=== PATIENT | female | born 1980 | race Caucasian/White ===

== ENCOUNTER 2018-02-12 11:22 | Observation (INO) ==
[2018-02-12 12:41] LABS: BILIRUBIN,URINE NEGATIVE (NEG); CLARITY,URINE CLEAR (CLEAR); COLOR,URINE YELLOW (Y); GLUCOSE, URINE (UA) NEGATIVE (NEG); OCCULT BLOOD,URINE NEGATIVE (NEG); PH,URINE 6.5 (5.0-8.5); PROTEIN,URINE NEGATIVE (NEG); UROBILINOGEN,URINE 0.2 EU/dL (0.2)
[2018-02-12 12:56] LABS: URINE SAMPLE TYPE CLEAN CATCH URINE
[2018-02-12 12:57] LABS: SQUAMOUS EPITHELIAL CELL,UR FEW
[2018-02-12] MEDS ORDERED: NORMAL SALINE 10 ML SYRINGE FLUSH IVP PRN (14:40)
[2018-02-12] MEDS ORDERED: Lactated Ringers 1,000 ML PRIMARY IV ONE (14:40)
[2018-02-12] MEDS ORDERED: LIDOCAINE W/ SODIUM BICARB 0.5 ML SYR SUBD PRN (14:40)
[2018-02-12] MEDS ORDERED: ONDANSETRON 4 MG/2 ML VIAL IVP PRN (14:40)
[2018-02-12] MEDS ORDERED: NIFEdipine 10 MG CAPSULE PO SCH (14:45)
[2018-02-12] MEDS ORDERED: BETAMET ACET/BETAMET NA PH 6 MG/1 ML - 5 ML IM SCH (14:45)
--- NOTE | 2018-02-12 15:18 | OB.PROGRES ---
Interval History: The patient is a 37-year-old at 30-0/7 weeks today who is been having some lower abdominal cramping and pain and also some tightening of her abdomen. Positive movement, no leak of fluid no bleeding. The patient called and was asked to go to labor and delivery. Past medical history is significant for fibromyalgia and scoliosis. No history of depression. Also a history of bilateral hip bursitis. 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 No STI history positive history of herpes but no recent outbreaks for the past couple years. OB history significant for vaginal delivery x2. Largest baby was 7 lbs. 12 oz. Patient's first delivery was at 38 weeks and her second delivery was at 35-4/7 weeks. The patient does have a history of rapid labors. Her last labor she had PPROM and then delivered an hour and a half later. Patient did have a mild hemorrhage with her last delivery which improved with IV Pitocin and Cytotec rectally. Objective - Cervical Exam Cervical Exam: 1/75-80/-1. No blood on my glove with exam. Heart Rate Interpretation Category: Category I - Vital Signs Last Taken Vital Signs: Vital Signs - Last Taken Temperature 98.1 F 02/12/18 11:35 Pulse Rate 95 02/12/18 11:35 Respiratory Rate 18 02/12/18 11:35 Blood Pressure 128/67 02/12/18 11:35 Pulse Ox 100 02/12/18 11:35 - Additional Details Additional Details: Abdomen is soft and nontender without guarding or rebound. Urinalysis was negative fibronectin was positive Vaginosis panel was negative Assessment and Plan - Assessment / Plan Additional Assessment/Plan Details: Assessment: IUP 30-0/7 weeks with some lower abdominal pain and cramping. No specific contractions on monitor but nurse couldn't palpate one contraction. The the patient's fibronectin was positive. A negative fibronectin yields about a significant chance patient will not deliver in the next 2 weeks but a positive fibronectin does not mean the patient will have a delivery. Urinalysis was negative. The patient's cervix is effaced to 75-80% and her cervix is 1 cm. My exam was very gentle. The baby did palpate low in the pelvis with my exam. Plan: The patient will be admitted for observation status. IV will be started and IV bolus Procardia 10 mg by mouth every 6 hours after initial bolus of 10 mg daily 20 minutes 3 doses Betamethasone 12 mg IM now and then repeat in 24 hours. We discussed that this is for lung maturity but also to help prevent necrotizing enterocolitis and interventricular hemorrhage if there was a delivery. Patient expressed understanding. External monitor Ultrasound-patient had a growth ultrasound a couple weeks ago but I will get another one today to look at presentation but also to look at the NYLA as well as EFW.
[2018-02-12] MEDS: NIFEdipine 10 MG CAPSULE PO SCH ×4 (15:44→21:45)
[2018-02-12 15:55] LABS: BASOPHILS # (AUTO) 0.02 10*3/UL; BASOPHILS % (AUTO) 0.2 % (0-1); EOSINOPHILS # (AUTO) 0.15 10*3/UL; EOSINOPHILS % (AUTO) 1.1 % (0-8); Hematocrit [HCT] 39.7 % (37.0-47.0); Hemoglobin [HGB] 13.8 g/dL (12.0-16.0); LYMPHOCYTES # (AUTO) 2.45 10*3/uL; MEAN CORPUSCULAR HEMOGLOBIN 30.8 PG (27-31); MEAN CORPUSCULAR HGB CONC 34.8 g/dL (33-37); MEAN CORPUSCULAR VOLUME 88.6 FL (81-99); MEAN PLATELET VOLUME 9.2 FL (7.4-12.2); MONOCYTES # (AUTO) 0.58 10*3/UL (0.3-0.8); MONOCYTES % (AUTO) 4.4 % (5-15); NEUTROPHILS # (AUTO) 9.77 10*3/UL; NEUTROPHILS % (AUTO) 74.8 % (50-80); RED BLOOD COUNT 4.48 10^6/uL (4.20-5.40)
[2018-02-12 16:03] LABS: PLATELET MORPHOLOGY COMMENT NORMAL MORPHOLOGY (NORM); RBC MORPHOLOGY COMMENT NORMAL MORPHOLOGY (NORM); WBC MORPHOLOGY COMMENT NORMAL MORPHOLOGY (NORM)
[2018-02-12 16:29] LABS: BLOOD UREA NITROGEN 5 mg/dL (7-22); SERUM ALBUMIN 3.7 g/dL (3.5-4.8)
--- NOTE | 2018-02-12 17:45 | DI ---
US OB , Limited,02/12/2018 3:24 PM: Clinical History: labor and abdominal pain. Previous Exam: January 29, 2018 Findings: Multiple grayscale and color Doppler sonographic images of the pelvis demonstrate a single live intra uterine gestation in vertex presentation. Detected Doppler heart tones measure 147 beats per minute. A normal amniotic fluid level is noted (12.7 cm). Estimated gestational age was determined by a composite of biparietal diameter, head circumference, a bdominal circumference and femur length yielding an estimated gestational age by ultrasound of 30 wee ks one day. Estimated weight is 1390 g (20th percentile). Impression: Single live intrauterine gestation with size equal to dates. Normal amniotic fluid index
--- NOTE | 2018-02-12 20:54 | OB.PROGRES ---
Interval History: The patient states that she is comfortable. Still having some abdominal discomfort and tightening but perhaps not as much. Baby moving. No leak of fluid. No bleeding. Objective - Cervical Exam Cervical Exam: -80/-1 to -2. The baby's head is not quite as low in her pelvis as it was earlier. No blood on my glove with cervical exam [place]: No specific contractions picking up. Heart Rate Interpretation Category: Category I - Labs CBC and BMP: 02/12/18 15:40 02/12/18 15:40 - Vital Signs Last Taken Vital Signs: Vital Signs - Last Taken Temperature 97.9 F 02/12/18 17:00 Pulse Rate 83 02/12/18 17:00 Respiratory Rate 16 02/12/18 17:00 Blood Pressure 107/55 02/12/18 17:00 Pulse Ox 100 02/12/18 14:40 - Additional Details Additional Details: Abdomen is soft without guarding or rebound Assessment and Plan - Assessment / Plan Additional Assessment/Plan Details: Assessment: IUP 30 weeks with contractions or labor. The patient's cervix is unchanged from earlier but the baby's head is not as low in the patient's pelvis as it was previously. Plan: Patient will receive second dose of betamethasone tomorrow afternoon. Nifedipine 10 mg by mouth every 6 hours-patient states she does have a headache and this may be a result of the nifedipine. I will offer the patient some Tylenol. Continue bedrest with bathroom privileges Group B strep is pending Continue to observe closely.
[2018-02-12] MEDS: ACETAMINOPHEN 500 MG TABLET PO PRN (21:45)
[2018-02-12] MEDS: Lactated Ringers 1,000 ML PRIMARY IV SCH (22:23)
[2018-02-13] MEDS: NIFEdipine 10 MG CAPSULE PO SCH ×4 (02:47→20:57)
--- NOTE | 2018-02-13 08:33 | OB.PROGRES ---
Interval History: The patient states that she still has occasional cramping but it is improved. She has a dull headache after taking the Tylenol last night. Objective - Cervical Exam Cervical Exam: Deferred currently - Labs CBC and BMP: 02/12/18 15:40 02/12/18 15:40 - Vital Signs Last Taken Vital Signs: Vital Signs - Last Taken Temperature 97.9 F 02/13/18 04:01 Pulse Rate 101 H 02/13/18 04:01 Respiratory Rate 20 02/13/18 04:01 Blood Pressure 118/70 02/13/18 04:01 Pulse Ox 100 02/13/18 04:01 - Additional Details Additional Details: Abdomen is soft without guarding or rebound Assessment and Plan - Assessment / Plan Additional Assessment/Plan Details: Assessment: IUP 30-1/7 weeks with contractions or labor. Cervix was dilated to 1 cm and effaced to 75-80%. Last night's exam showed the cervix to be essentially unchanged but the head was not as low in the pelvis. Patient is status post 1 dose of betamethasone yesterday afternoon at 1650 hrs. Vaginosis panel was negative fibronectin was positive Group B strep is pending This morning, the patient is doing fairly well. She still hasn't all headache which may be secondary to the Procardia or nifedipine which she is receiving 10 mg every 6 hours. Plan: Betamethasone this afternoon Continue bedrest and bathroom privileges SCDs I will check the patient's cervix midday Continue to follow closely I anticipate if the patient continues to do well without further cervical dilation, I could send the patient home tomorrow on decreased activity at home. The patient would not be working for the next 6 weeks. The patient will follow up with me weekly in the clinic. Strict precautions would be given. The patient and I discussed this and the patient expressed understanding.
[2018-02-13] MEDS: ACETAMINOPHEN 500 MG TABLET PO PRN (08:44)
[2018-02-13] MEDS: Prenatal Multivitamin Tab 1 TAB TAB PO SCH (09:46)
[2018-02-13] MEDS: Lactated Ringers 1,000 ML PRIMARY IV SCH ×2 (13:41→23:37)
--- NOTE | 2018-02-13 15:11 | OB.PROGRES ---
Interval History: The patient states that she is been doing well. Decreased discomfort. Objective - Cervical Exam Cervical Exam: /. The cervix was actually slightly less dilated than it was last evening. This is good. [place]: No contractions Heart Rate Interpretation Category: Category I - Labs CBC and BMP: 02/12/18 15:40 02/12/18 15:40 - Vital Signs Last Taken Vital Signs: Vital Signs - Last Taken Temperature 97.8 F 02/13/18 09:45 Pulse Rate 97 02/13/18 09:45 Respiratory Rate 18 02/13/18 09:45 Blood Pressure 126/57 02/13/18 09:45 Pulse Ox 100 02/13/18 09:45 - Additional Details Additional Details: Abdomen soft, without guarding or rebound Assessment and Plan - Assessment / Plan Additional Assessment/Plan Details: Assessment: IUP 30 and one sevenths weeks with contractions or labor. Cervix has not changed and exam had shown that the cervix is actually slightly less dilated than it was last night although still 1 cm. 75% effaced. The cervix palpated slightly more firm than it did last night. This is good. Plan: Betamethasone this afternoon. Continue care Possible discharge tomorrow with nifedipine and decreased activity at home.
[2018-02-13] MEDS ORDERED: BETAMET ACET/BETAMET NA PH 6 MG/1 ML - 5 ML IM SCH (16:45)
[2018-02-13] MEDS ORDERED: Zolpidem Tab 5 MG TAB PO PRN (20:16)
[2018-02-14] MEDS ORDERED: CALCIUM CARBONATE 500 MG (TUMS) CHEWABLE TABLET PO ONE (02:01)
[2018-02-14] MEDS: NIFEdipine 10 MG CAPSULE PO SCH ×2 (03:06→09:06)
[2018-02-14 04:14] VITALS: O2SAT 100
[2018-02-14 07:46] VITALS: RESP 18; TEMP 98.2
[2018-02-14] MEDS: Prenatal Multivitamin Tab 1 TAB TAB PO SCH (09:06)
[2018-02-14 09:50] VITALS: BP 112/63
--- NOTE | 2018-02-14 10:27 | OB.PROGRES ---
Interval History: The patient states that she feels well. No abdominal pain. She still has slight pressure but much improved since yesterday. And much improved from the day before. The patient would like to go home. Objective - Cervical Exam Cervical Exam: Deferred today [place]: Rare contraction, no specific irritability Heart Rate Interpretation Category: Category I - Labs CBC and BMP: 02/12/18 15:40 02/12/18 15:40 - Vital Signs Last Taken Vital Signs: Vital Signs - Last Taken Temperature 98.2 F 02/14/18 07:30 Pulse Rate 92 02/14/18 07:30 Respiratory Rate 18 02/14/18 07:30 Blood Pressure 112/63 02/14/18 09:30 Pulse Ox 100 02/14/18 07:30 - Additional Details Additional Details: Lungs clear to auscultation Heart regular rate and rhythm Abdomen is gravid, soft, nontender without guarding or rebound Extremity without Homans sign Assessment and Plan - Assessment / Plan Additional Assessment/Plan Details: Assessment: IUP 30-2/7 weeks with contractions with initial cervical change but none since. Patient taking nifedipine 10 mg every 6 hours and tolerating this well now. No headache. Patient is status post betamethasone 2 injections to complete 1 course. Plan: Discharge home today No work until 36 weeks gestation Procardia 10 mg by mouth every 6 hours The patient should also be taking her Valtrex to prophylactically prevent an HSV outbreak Patient has an appointment with me next week on 17 February at 11:00 in the morning The patient will then see me weekly Repeat ultrasound in 4 weeks for growth scan Labor precautions and kick count precautions discussed with patient.
--- NOTE | 2018-02-14 10:36 | DCSUMMARY ---
Hospitalization Summary Admit Date: 02/12/18 Discharge Date: 02/14/18 Primary Diagnosis:: IUP 30 weeks gestation with contractions Primary Surgery and Date: No surgery Hospital Course: The patient was admitted and given IV fluids. IM betamethasone was administered on and 02/13/2018. The patient was also placed on Procardia 10 mg every 6 hours after a loading dose of 10 mg by mouth every 20 minutes 3 doses. The patient's cervical exam yesterday afternoon actually shows some improvement. Her cervix was still 1 cm/75/-2 with the cervix did palpate slightly more closed yesterday afternoon. The patient has tolerated the nifedipine 10 mg every 6 hours after initially having a headache. The patient does not have a headache today. The patient will be discharged home on decreased activity at home and no work until 36 weeks gestation. The patient will follow-up with me next week and then weekly. A growth scan in 4 weeks will be completed. The patient will also take Valtrex to prophylactically prevent an HSV outbreak since she has a history. The patient will continue nifedipine 10 mg every 6 hours. Exam - Vitals Vital Signs: Vital Signs Temperature 98.2 F Temperature Source Oral Pulse Rate [Apical] 90 Pulse Rate [Pulse Oximeter] 92 Pulse Rate 90 Respiratory Rate 18 Blood Pressure [Right Arm] 112/63 Pulse Ox 100 Oxygen Flow Rate 98 Oxygen Delivery Method Room Air Height 6 ft Weight 211 lb 8 oz
== END 2018-02-14 11:47 | disposition home or self-care (01) ==
LOC: OBOP 11:22 → OBIP 11:22
PROVIDERS: ADMIT Obstetrics & Gynecology; ATTEND Obstetrics & Gynecology

== ENCOUNTER 2018-03-28 09:50 | Inpatient (IN) ==
--- NOTE | 2018-03-28 11:37 | OB.PROGRES ---
Interval History: The patient is a 36-year-old white female at 36-2/7 weeks who has been followed for contractions since 30 weeks and then her growth scans a been followed secondary to advanced maternal age with a growth scan 2-1/2 weeks ago showing EFW to be the 12th percentile and abdominal circumference to be the 6th percentile and then earlier this week the patient's EFW was the 19th percentile and the abdominal circumference was the 7th percentile. NYLA's within normal. Nonstress tests have been reactive. The patient presented for a nonstress test today and a reactive nonstress test was noted but also variable deceleration to 79 for 30 seconds was noted. The patient's cervix was checked and she was 2-3 cm/80% and -1 station. Past medical history is significant for fibromyalgia and scoliosis. No history of depression. Also a history of bilateral hip bursitis. Patient has a history of HSV and has been taking Valtrex since around 30+ weeks secondary to her history of contractions and history of delivery. 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 No STI history positive history of herpes but no recent outbreaks for the past couple years. OB history significant for vaginal delivery x2. Largest baby was 7 lbs. 12 oz. Patient's first delivery was at 38 weeks and her second delivery was at 35-4/7 weeks. The patient does have a history of rapid labors. Her last labor she had PPROM and then delivered an hour and a half later. Patient did have a mild hemorrhage with her last delivery which improved with IV Pitocin and Cytotec rectally. Objective - Cervical Exam Cervical Exam: 2-3/80/-1 cephalic [place]: Contractions every 2-4 minutes and patient can feel the contractions but no pain Heart Rate Interpretation Category: Category II (Variable deceleration to 79 for 30 seconds before return to baseline. Otherwise good accelerations) - Vital Signs Last Taken Vital Signs: Vital Signs - Last Taken Temperature 98.1 F 03/28/18 09:59 Pulse Rate 97 03/28/18 09:59 Respiratory Rate 16 03/28/18 09:59 Blood Pressure 117/70 03/28/18 09:59 Pulse Ox 93 03/28/18 09:59 - Additional Details Additional Details: Lungs clear to auscultation Heart regular rate and rhythm Abdomen is gravid, soft, nontender without guarding or rebound Assessment and Plan - Assessment / Plan Additional Assessment/Plan Details: Assessment: IUP 36-2/7 weeks with a history of contractions and a history of a delivery at 35-1/2 weeks. The patient first presented for contractions at 30 weeks and her cervix was found to be 1 cm dilated and the patient received one course of betamethasone at that time. The patient stopped working at that time as she was full-time employed before that and she was at home with decreased activity. At 34 weeks, the patient had still not delivered and a second course of betamethasone was administered. The patient was placed on nifedipine 10 mg every 6 hours and has been taking this until 36 weeks gestation. Secondary to advanced maternal age but also size less than dates serial growth ultrasounds were ordered an ultrasound 2-1/2 weeks ago showed the baby to be the 12th percentile with the abdominal circumference is 6 percentile. Repeat in 2 weeks showed EFW to be the 19th percentile with the abdominal circumference is 6 percentile. Today, the patient presents for a nonstress test secondary to her history of contractions and being on nifedipine but also secondary to her history of size less than dates and growth scan being 7th percentile for the abdominal circumference. The NYLA is a been normal. The patient had a variable deceleration with a contraction today that lasted 30 seconds and decreased at 79 bpm at the patrice. Otherwise there were good accelerations. Additionally, contractions were every 2-4 minutes and the patient couldn't palpate these although they were nontender. Patient has a history of herpes simplex virus and has been taking Valtrex. The patient has a history of an elevated 1 hour Glucola of 143 and a 3 hour Glucola was normal. The patient is Rh+. Group B strep negative Plan: The patient will be admitted for observation. I discussed the options of augmenting the patient's contractions secondary to the history of the variable deceleration with a contraction today versus observing the patient to determine if there are recurrent variable decelerations. If there are recurrent variable decelerations, I would strongly offer augmentation of her contractions to deliver the patient. If there are no more variable decelerations, I would like to observe the patient for several days and check an NYLA. If there are no more variable decelerations and the patient is not changing her cervix after 48 hours the patient could be discharged home with strict precautions to return for daily monitoring until 37 weeks gestation when delivery at term could be offered. If the patient requested delivery with augmentation of her contractions now, realizing the possibility, although low, of the transfer to a NICU in [place], [place] secondary to 36-2/7 weeks for pulmonary issues or other issues , I would augment her contractions with Pitocin with expectant management. The patient understands her options and will consider her options.
[2018-03-28] MEDS ORDERED: OXYTOCIN 10 UNIT/1 ML IM PRN (11:45)
[2018-03-28] MEDS ORDERED: MISOPROSTOL 200 MCG TABLET RECTAL PRN (11:45)
[2018-03-28] MEDS ORDERED: diphenhydrAMINE 50 MG/1 ML VIAL IVP PRN (11:45)
[2018-03-28] MEDS ORDERED: TERBUTALINE SULFATE 1 MG/1 ML SDV SUBCUT PRN (11:45)
[2018-03-28] MEDS ORDERED: CefOXitin Inj 2 GM in Sodium Chloride 0.9% 100 ML IV PRN (11:45)
[2018-03-28] MEDS ORDERED: Naloxone Inj 0.01 MG in Normal Saline Flush 1 ML IVP PRN (11:45)
[2018-03-28] MEDS ORDERED: NALOXONE 0.4 MG/1 ML VIAL IVP PRN (11:45)
[2018-03-28] MEDS ORDERED: Carboprost Inj 250 MCG/ML AMP IM PRN (11:45)
[2018-03-28] MEDS ORDERED: CITRIC ACID/SODIUM CITRATE 30 ML CUP PO PRN (11:45)
[2018-03-28] MEDS ORDERED: CALCIUM CARBONATE 500 MG (TUMS) CHEWABLE TABLET PO PRN (11:45)
[2018-03-28] MEDS ORDERED: LIDOCAINE HCL 2 % 10 ML JELLY URO-JECT TOPICAL PRN (11:45)
[2018-03-28] MEDS ORDERED: ePHEDrine Inj 5 MG in Normal Saline Flush 1 ML IVP PRN (11:45)
[2018-03-28] MEDS ORDERED: Metoclopramide Inj 10 MG/2 ML VIAL IV PRN (11:45)
[2018-03-28] MEDS ORDERED: Oxytocin 20 Units + LR 20 UNIT/1,000 ML BAG IV SCH ×2 (11:45→17:45)
[2018-03-28] MEDS ORDERED: fentaNYL Inj 100 MCG/2 ML VIAL IV PRN (11:45)
[2018-03-28] MEDS ORDERED: Phenylephrine Inj 50 MCG in Normal Saline Flush 0.5 ML IVP PRN (11:45)
[2018-03-28] MEDS ORDERED: Lidocaine 1% 10 MG/ML - 20 ML VIAL SUBCUT PRN (11:45)
[2018-03-28] MEDS ORDERED: METHYLERGONOVINE MALEATE 0.2 MG/1 ML VIAL IM PRN (11:45)
[2018-03-28] MEDS ORDERED: BUTORPHANOL TARTRATE 2 MG/1 ML VIAL IVP PRN (11:45)
[2018-03-28] MEDS ORDERED: FAMOTIDINE 20 MG/2 ML VIAL IVP PRN ×2 (11:45)
[2018-03-28] MEDS ORDERED: Nalbuphine Inj 20 MG/ML Ampule IVP PRN (11:45)
[2018-03-28] MEDS ORDERED: ONDANSETRON 4 MG/2 ML VIAL IVP PRN (11:45)
[2018-03-28] MEDS ORDERED: LIDOCAINE W/ SODIUM BICARB 0.5 ML SYR SUBD PRN (11:45)
[2018-03-28 12:57] LABS: Hematocrit [HCT] 40.6 % (37.0-47.0); Hemoglobin [HGB] 13.8 g/dL (12.0-16.0); MEAN CORPUSCULAR HEMOGLOBIN 30.5 PG (27-31); MEAN CORPUSCULAR VOLUME 89.8 FL (81-99); MEAN PLATELET VOLUME 9.3 FL (7.4-12.2); RED BLOOD COUNT 4.52 10^6/uL (4.20-5.40)
[2018-03-28] MEDS: Lactated Ringers-OB Dept 1,000 ML PRIMARY IV SCH ×2 (13:00→16:05)
--- NOTE | 2018-03-28 13:42 | OB.PROGRES ---
Interval History: The patient states that she is still considering her options. She can feel her contractions a little bit more. Objective - Cervical Exam Heart Rate Interpretation Category: Category I - Labs CBC and BMP: 03/28/18 12:55 - Vital Signs Last Taken Vital Signs: Vital Signs - Last Taken Temperature 98.1 F 03/28/18 09:59 Pulse Rate 97 03/28/18 09:59 Respiratory Rate 16 03/28/18 09:59 Blood Pressure 117/70 03/28/18 09:59 Pulse Ox 93 03/28/18 09:59 - Additional Details Additional Details: NYLA was 10.1 by limited transabdominal ultrasound. Baby was in the cephalic presentation and appeared to be in the OT position Assessment and Plan - Assessment / Plan Additional Assessment/Plan Details: Assessment: IUP 36-2/7 weeks with normal NYLA. Plan: Continue external monitoring and observation. Patient will consider her options per my previous note.
--- NOTE | 2018-03-28 17:41 | OB.PROGRES ---
Interval History: The patient is comfortable with can feel her contractions every couple minutes. The patient observed another variable to 65 bpm. Objective - Cervical Exam Cervical Exam: 390/-1 cephalic. Membranes could be palpated Heart Rate Interpretation Category: Category II (With one variable deceleration to 65 bpm that lasted a total of about 30 seconds. Other more mild variable decelerations Good variability and accelerations otherwise) - Labs CBC and BMP: 03/28/18 12:55 - Vital Signs Last Taken Vital Signs: Vital Signs - Last Taken Temperature 98.0 F 03/28/18 13:30 Pulse Rate 140 H 03/28/18 16:00 Respiratory Rate 18 03/28/18 15:44 Blood Pressure 108/82 03/28/18 15:44 Pulse Ox 99 03/28/18 15:44 Assessment and Plan - Assessment / Plan Additional Assessment/Plan Details: Assessment: IUP 36-2/7 weeks with history of contractions with cervical dilation to 1 cm and 80% since 30 weeks. The patient has received 2 courses of steroids 1 at 30 weeks and then 1 at 33 6/ 7 weeks gestation. Group B strep negative The patient presented for antepartum testing this morning and had a variable deceleration to 79 bpm. The patient was observed and continues to have mild variables but also the variable to 65 bpm. Plan: When I discussed this with the patient, the patient understood the small risk with the delivery at 36-2/7 weeks with the transfer the baby to the NICU secondary to pulmonary issues or temperature issues or glucose issues but also understands that she did receive 2 courses of steroids for pulmonary maturity at 30 weeks and then 34 weeks gestation. The patient wishes to deliver and does not want to continue monitoring the baby just in case all of a sudden the baby has significant more variables or late decelerations. I did offer her continued observation and external monitoring until 37 weeks gestation. The patient does understand that it is possible with augmentation of her contractions at the variable decelerations could worsen and that a section may have to be completed for nonreassuring status. I have ordered the Pitocin. We will continue to observe the patient closely. The patient does have a history of rapid labors once AROM or SROM has occurred. Once the patient gets into a better pattern after a couple hours, I may offer the patient AROM. I did contact Dr. Woodall who is covering for pediatrics and discussed the patient's history with him.
--- NOTE | 2018-03-29 02:09 | OB.PROGRES ---
Interval History: The patient has been cynthia every 2-3 minutes and has been uncomfortable with the contractions but tolerating them. She does feel more pelvic pressure. The nursing called me after the nurse's exam showing the patient to be 8 cm and completely effaced. Objective - Cervical Exam Cervical Exam: 8-9/c/-1 cephalic. AROM with clear fluid [place]: Contractions every 2-3 minutes with 2 milliunits of Pitocin. I asked that the Pitocin be shut off just before AROM Heart Rate Interpretation Category: Category II (Occasional variable deceleration for 30 seconds) - Labs CBC and BMP: 03/28/18 12:55 - Vital Signs Last Taken Vital Signs: Vital Signs - Last Taken Temperature 98.1 F 03/28/18 23:00 Pulse Rate 87 03/29/18 01:00 Respiratory Rate 16 03/28/18 18:00 Blood Pressure 117/80 03/29/18 00:30 Pulse Ox 100 03/29/18 01:00 Assessment and Plan - Assessment / Plan Additional Assessment/Plan Details: Assessment: IUP 36-3/7 weeks with occasional variable deceleration with her without contractions noted on antepartum testing nonstress test. NYLA was 10.1 cm. After several variables, the patient chose to undergo Pitocin augmentation of her contractions that were are previously present. There is been good progress on 2 milliunits of Pitocin with the cervix now 8-9 cm. AROM with clear fluid Group B strep negative Abdominal circumference was a 7th percentile EFW was 2449 g earlier this week and patient is status post 2 courses of steroids 1 at 30 weeks and one at 33-6/7 weeks Plan: Expectant management Pitocin is currently off
--- NOTE | 2018-03-29 03:13 | OB.DEL.SUM ---
Delivery Note Delivery Summary: Delivery note: Cervix is a centimeter and AROM with clear fluid. Occasional variable deceleration. Patient's cervix dilated quickly from 8-9 cm to complete after AROM with clear fluid. Variable decelerations occasionally were present on the external monitoring. The patient had an urge to push. The patient's bed was broken down and the patient was placed in the dorsal lithotomy position The patient pushed 2-3 times and delivered a baby in the OA presentation. There was a nuchal cord 1 which was reduced on the perineum. It was not tight around the baby's neck. The baby was then delivered atraumatically. The baby's mouth and nose were bulb suctioned while I was holding the baby at the patient's perineum. The baby was placed on the mother's abdomen and chest. Delayed cord clamping for about 30 seconds and the cord was clamped and cut. It actually had just stopped pulsing and then I clamped and cut the cord. There was minimal amount of bleeding vaginally. The cord was clamped and cut for a section of cord for cord gas. Cord blood was then obtained for cord blood sample The placenta was then delivered spontaneously and atraumatically and appeared intact. This was with the patient pushing gently. Uterine massage found the uterus to be at U -2 and firm with massage Secondary to the patient's history of having bleeding and Cytotec was administered last , I decided to prophylactically place 800 g of Cytotec rectally. Gloves were then changed. The patient's vagina was examined and there was a small first-degree vaginal laceration which was actually just a skid jeannette but was slightly bleeding. 1% Xylocaine without epinephrine was injected at 6:00 on o'clock at the posterior vagina near the introitus. About 2 mL was injected. 3-0 Vicryl suture on an SH needle was then used with 3 interrupted sutures to reapproximate the posterior vaginal skid jeannette or first-degree laceration. I could not visualize the patient's cervix secondary to patient discomfort but the patient was not bleeding and there was good hemostasis. There were no other significant lacerations noted. Minimal bleeding. A rectal exam was completed again to actually palpate for any buttonhole lacerations. There were none palpated. With good hemostasis, the procedure was completed. Findings were a male with a weight of 2544 g or 5.09 pounds. ABG showed a pH of 7.454, PCO2 a 27.7, PO2 of 26, base excess of -5, and HCO3 of 19.4. Apgars were 7 and 7 The placenta appeared small in diameter and depth. Otherwise it appeared normal. The umbilical cord was large and gelatinous. The placenta was sent to pathology. The baby was brought to the nursery and was given bubble CPAP. Please see Dr. Woodall's note for the baby.
[2018-03-29] MEDS ORDERED: LIDOCAINE HCL 2 % 10 ML JELLY URO-JECT TOPICAL PRN (03:44)
[2018-03-29] MEDS ORDERED: ACETAMINOPHEN 325 MG TABLET PO PRN (03:44)
[2018-03-29] MEDS ORDERED: Nalbuphine Inj 20 MG/ML Ampule IVP PRN (03:44)
[2018-03-29] MEDS ORDERED: Oxytocin 20 Units + LR 20 UNIT/1,000 ML BAG IV SCH (03:44)
[2018-03-29] MEDS ORDERED: CALCIUM CARBONATE 500 MG (TUMS) CHEWABLE TABLET PO PRN (03:44)
[2018-03-29] MEDS ORDERED: diphenhydrAMINE 25 MG CAPSULE PO PRN (03:44)
[2018-03-29] MEDS ORDERED: BENZOCAINE/MENTHOL SPRAY 56 GM BOTTLE TOPICAL PRN (03:44)
[2018-03-29] MEDS ORDERED: HYDROcodone-APAP 5 MG -325 MG TABLET PO PRN (03:44)
[2018-03-29] MEDS ORDERED: ONDANSETRON 4 MG/2 ML VIAL IVP PRN (03:44)
[2018-03-29] MEDS ORDERED: Ondansetron ODT Tab 4 MG TAB PO PRN (03:44)
[2018-03-29] MEDS ORDERED: diphenhydrAMINE 50 MG/1 ML VIAL IVP PRN (03:44)
[2018-03-29] MEDS ORDERED: DIPH,PERTUSS,TET(ADACEL) VAC/PF 0.5 ML (Tdap) IM ONE (03:44)
[2018-03-29] MEDS ORDERED: LANOLIN HPA 40 GM TUBE TOPICAL PRN (03:44)
[2018-03-29] MEDS ORDERED: GLYCERIN/WITCH HAZEL 1 BOX TOPICAL PRN (03:44)
[2018-03-29] MEDS: IBUPROFEN 800 MG TABLET PO PRN ×2 (04:19→20:13)
[2018-03-29] MEDS ORDERED: Lidocaine Inj 1% 20 ML ONE (04:28)
[2018-03-29] MEDS: DOCUSATE 100 MG CAPSULE PO SCH ×2 (09:55→20:57)
--- NOTE | 2018-03-29 14:47 | OB.PROGRES ---
Subjective Post Op Day: day #0 Pain Management: PO Kiser Catheter: No Flatus: Yes Diet: Regular Irvona Feeding Method: / Bottle Ambulating: Yes Concerns / Additional Information: The patient is doing well. The patient is pumping since her baby is in the nursery on bubble CPAP. Patient is bleeding minimally. No abdominal pain. Tolerating regular diet. Objective - General General Appearance: POSITIVE: No Acute Distress, Cooperative - Cardiovacular Extremities: Negative Yoel's - Bilaterally - Abdomen Abdominal Wound Assessment: Asymptomatic - Fundus/Lochia/Perineum Uterus Consistency: Firm Uterus Position: POSITIVE: Below Umbilicus Assesstment / Plan Assessment / Plan: Assessment: day #0 status post spontaneous vaginal delivery earlier this morning. Patient is doing well. The patient's baby is on bubble CPAP but doing better. Plan: Continue to observe Currently, I will anticipate discharge on day #2 since the patient's baby will not be going home on day #1. However, I can discharge her tomorrow and the patient will room in. This will be determined tomorrow. CBC tomorrow.
[2018-03-30 04:55] LABS: Hematocrit [HCT] 36.1 % (37.0-47.0); Hemoglobin [HGB] 12.1 g/dL (12.0-16.0); MEAN CORPUSCULAR HEMOGLOBIN 30.8 PG (27-31); MEAN CORPUSCULAR HGB CONC 33.5 g/dL (33-37); MEAN CORPUSCULAR VOLUME 91.9 FL (81-99); MEAN PLATELET VOLUME 9.3 FL (7.4-12.2); RED BLOOD COUNT 3.93 10^6/uL (4.20-5.40)
[2018-03-30] MEDS: IBUPROFEN 800 MG TABLET PO PRN (08:11)
[2018-03-30] MEDS: DOCUSATE 100 MG CAPSULE PO SCH (08:12)
[2018-03-30 08:17] VITALS: BP 109/64; RESP 18; TEMP 97.5; O2SAT 100
[2018-03-30] MEDS ORDERED: Prenatal Multivitamin Tab 1 TAB TAB PO SCH (09:00)
--- NOTE | 2018-03-30 09:49 | OB.PROGRES ---
Subjective Post Op Day: day #1 Pain Management: PO Kiser Catheter: No Flatus: Yes Diet: Regular Feeding Method: / Bottle Ambulating: Yes Concerns / Additional Information: The patient is pumping. The patient's baby is off CPAP as of last night. Oxygen last night and this morning no oxygen per the patient. The patient is feeling well. She is taking ibuprofen for cramping. No abdominal pain. Minimal vaginal bleeding. Objective - General General Appearance: POSITIVE: No Acute Distress, Cooperative - Cardiovacular Cardiovascular Exam: POSITIVE: RRR Extremities: Negative Yoel's - Bilaterally - Respiratory Respiratory Exam: POSITIVE: Clear to Auscultation - Bilaterally - Abdomen Bowel Sounds: Present (Abdomen soft and nontender without guarding or rebound.) - Fundus/Lochia/Perineum Uterus Position: POSITIVE: Below Umbilicus Assesstment / Plan Assessment / Plan: Assessment: Post day #1 status post spontaneous vaginal delivery after augmentation of contractions for variable decelerations. The patient herself is doing very well. H&H was 12 and 36. Platelets are normal. The patient's baby is off of CPAP. No oxygen this morning but intermittent desaturation per the nurse. Plan: In talking with the patient, I have decided to discharge the patient today but the patient will room in with her baby. The patient's room may be changed to a more quiet room. I do not anticipate baby's discharge today but continued observation. I will discharge the patient home on ibuprofen 800 mg 3 times a day and Colace which is a stool softener The patient will need a follow-up at 6 weeks. Usual instructions Secondary to the patient's generalized thyroid enlargement history and I did obtain an ultrasound of her thyroid in September 2017 which showed a 4 mm cyst in her left thyroid lobe, I will check another ultrasound at the 6 week visit or order the ultrasound at that time to be completed as an outpatient. Additionally, I will check another free T4 and TSH at that time. If the patient has any symptoms before the 6 week visit, I will check her free T4 and TSH.
== END 2018-03-30 11:50 | disposition home or self-care (01) | DRG 775 ==
LOC: OBOP 09:50 → OBIP 12:38
PROVIDERS: ADMIT Obstetrics & Gynecology; ATTEND Obstetrics & Gynecology